=== PATIENT | female | born 1980 | race Caucasian/White ===

== ENCOUNTER 2017-05-01 12:46 | Outpatient (CLI) | payer OTHER | END 2017-05-01 12:47 | disposition home or self-care (01) | LOC: DTY/OP 12:46 | PROVIDERS: ATTEND Surgery | DX: E66.01 Morbid (severe) obesity due to excess calories (principal) | CPT/HCPCS: 97802 ==

== ENCOUNTER 2017-09-05 15:00 | Inpatient (IN) | payer BC ==
[2017-10-15 16:52] VITALS: BMI 35.4
--- NOTE | 2017-10-20 07:05 | HP ---
CHIEF COMPLAINT: Morbid obesity. HISTORY: The patient is a 37-year-old female who has been overweight for many years and attempted [facility] weight loss programs without success. She is here for sleeve gastrectomy. PAST MEDICAL HISTORY: Significant for hypothyroidism, glucose intolerance, hyperlipidemia. PAST SURGICAL HISTORY: Include a breast reduction in 2008. MEDICATIONS: She is on estradiol, Lipitor, Synthroid, metoprolol, citalopram. ALLERGIES: BACTRIM and HYDROCODONE. FAMILY HISTORY: Both parents are alive in good health. SOCIAL HISTORY: She is . No tobacco, no alcohol. PHYSICAL EXAMINATION: GENERAL: Height 5 foot 2, weight 198, body mass index is 36.2. VITAL SIGNS: Blood pressure 116/76, pulse 76. She is a well-developed, well-nourished female in no apparent distress. HEENT: Good hair growth. No alopecia. Pupils equal, round, and reactive. Extraocular muscles inta ct. Pharynx clear. Good dentition. NECK: Supple, no thyroid masses, no carotid bruits. LUNGS: Clear. HEART: Regular rate and rhythm. BREASTS: No palpable breast masses. No lymphadenopathy. ABDOMEN: Soft, nondistended, nontender, good bowel sounds. EXTREMITIES: Good pulses. No pedal edema. BACK: Nontender. ASSESSMENT: Morbid obesity with comorbidities. PLAN: Laparoscopic sleeve gastrectomy. CONSENT: I have discussed the planned procedure as well as risk of bleeding, infection, injury to sp asad, esophagus, loops of bowel, need to open, leakage from staple line. She understands and gives i nformed consent.
[2017-10-20] MEDS ORDERED: CEFAZOLIN/Water 2 GM/20 ML SYRINGE ONE (08:06)
[2017-10-20] MEDS ORDERED: Heparin 5,000 UNITS/ML VIAL ONE (08:06)
[2017-10-20] MEDS ORDERED: Bupivacaine/Epinephrine 0.25% 30 ML VIAL ONE (08:32)
[2017-10-20] MEDS ORDERED: Midazolam HCl 2 mg/2 ml Vial ONE (08:38)
[2017-10-20] MEDS ORDERED: Fentanyl 100 MCG/2 ML VIAL ONE ×3 (09:06→11:28)
[2017-10-20] MEDS ORDERED: HYDROmorphone 0.5 MG/0.5 ML SYRINGE ONE (09:06)
[2017-10-20] MEDS ORDERED: Ondansetron HCl/PF 4 MG/2 ML Vial IVP PRN ×3 (09:57→10:19)
[2017-10-20] MEDS ORDERED: Promethazine HCl 25 MG/ML VIAL SLOW IVP PRN (09:57)
[2017-10-20] MEDS ORDERED: HYDROmorphone 2 MG/ML VIAL SLOW IVP PRN (09:57)
[2017-10-20] MEDS ORDERED: Morphine Sulfate 2 MG/ML SYRINGE SLOW IVP PRN (09:57)
[2017-10-20] MEDS ORDERED: Meperidine HCl/PF 25 MG/ML VIAL SLOW IVP PRN (09:57)
[2017-10-20] MEDS ORDERED: Promethazine HCl 25 MG/ML VIAL IM PRN ×4 (09:57→12:25)
[2017-10-20] MEDS ORDERED: hydrALAZINE 20 MG/ML VIAL SLOW IVP PRN ×2 (10:16→10:19)
[2017-10-20] MEDS ORDERED: Hydrocodone-Acetamin 15 ML UDCUP PO PRN ×3 (10:16→12:24)
[2017-10-20] MEDS ORDERED: Dextrose 50% Abboject 50 ML SYRINGE SLOW IVP PRN ×2 (10:16→10:19)
[2017-10-20] MEDS ORDERED: Dextrose 5% in Water 1,000 ML IV PRN ×2 (10:16→10:19)
[2017-10-20] MEDS ORDERED: diphenhydrAMINE 50 MG/ML VIAL IVP PRN ×2 (10:16→10:19)
[2017-10-20] MEDS ORDERED: D5 1/2 NS w/20 mEq KCL 1,000 ML ONE (10:44)
--- NOTE | 2017-10-20 10:52 | OP ---
PREOPERATIVE DIAGNOSIS: Morbid obesity. SURGEON: Shlomo De Santiago M.D. PROCEDURES PERFORMED: Laparoscopic sleeve gastrectomy, esophagogastroscopy. INDICATIONS: This is a 37-year-old female who has been overweight for many years and attempted [facility] weight loss programs without success. She is here for sleeve gastrectomy. FINDINGS: A 38-Micronesian bougie used. PROCEDURE IN DETAIL: After informed consent was obtained, the patient was taken to the operating [place] [facility] and given general endotracheal anesthesia. She was placed in the supine position. Abdomen was pre pped and draped in usual fashion. Local anesthesia infiltrated subcutaneously and deep. A 12 mm inc ision was performed approximately 8 inches below the xiphoid slightly to the left. Veress needle ins erted. Drop test performed. Pneumoperitoneum was created to a volume of 2 liters of carbon dioxide. Utilizing a bladeless 12 mm trocar and 0-degree laparoscope, direct visual entry into abdominal cav ity was performed. Pneumoperitoneum was created to a pressure of 15 mmHg and the patient placed in s teep reverse Trendelenburg position and Nathansen liver retractor inserted. Left lobe of liver retra cted superiorly. The pylorus identified. A 12 mm port placed on the right beneath it and two 12s pl aced left subcostal. The omentum was taken off the greater curvature 5 cm from the pylorus. Short g astrics divided with the LigaSure and the left crura defined with the LigaSure. A 38-Micronesian bougie i nserted and directed into the antrum. The linear 60 mm green load stapler used to divide the antrum to the bougie, gold load along the bougie, and a series of blues through the angle of His. Intraoper ative endoscopy was performed. The video endoscope inserted under direct vision and advanced into th e sleeve. The staple line inspected. There was no bleeding. Staple line then tested by inflating t he stomach with pressurized air under water. There is no air leak. Stomach decompressed. Scope rem francisca. The remnant stomach removed from the abdomen through the left lateral port site. The fascia c losed with 0 Vicryl suture and the GraNee needle. Trocars and retractors removed. Hemostasis assure d. Skin closed with interrupted 4-0 Rapide. Dermabond applied. The patient tolerated the procedure well and was transferred to recovery in good condition. Sponge and needle count verified correct x2 .
[2017-10-20] MEDS ORDERED: diphenhydrAMINE 25 MG CAP PO PRN (12:25)
[2017-10-20] MEDS ORDERED: Zolpidem Tartrate 5 MG TAB PO PRN (12:25)
[2017-10-20] MEDS ORDERED: diphenhydrAMINE 50 MG/ML VIAL IM/IV PRN (12:25)
[2017-10-20] MEDS ORDERED: Ketorolac Tromethamine 30 MG/ML VIAL IVP PRN (12:25)
[2017-10-20] MEDS ORDERED: fentaNYL Citrate/PF 2,000 MCG in Sodium Chloride 0.9% 60 ML IV PRN (12:25)
[2017-10-20] MEDS ORDERED: Naloxone HCl 0.4 mg/ml Vial IV PRN (12:25)
[2017-10-20] MEDS: 1/2 NS w/KCL 20 mEq 1,000 ML IV SCH ×2 (14:12→20:12)
[2017-10-20] MEDS: Ketorolac Tromethamine 30 MG/ML VIAL IVP SCH ×3 (14:12→23:01)
[2017-10-20] MEDS: Ondansetron HCl/PF 4 MG/2 ML Vial IVP PRN (14:35)
[2017-10-20] MEDS ORDERED: CEFAZOLIN/Water 2 GM/20 ML SYRINGE SLOW IVP SCH (16:00)
[2017-10-20] MEDS: CEFAZOLIN/Water 2 GM/20 ML SYRINGE SLOW IVP SCH (18:16)
[2017-10-21] MEDS: CEFAZOLIN/Water 2 GM/20 ML SYRINGE SLOW IVP SCH (01:48)
[2017-10-21] MEDS: 1/2 NS w/KCL 20 mEq 1,000 ML IV SCH ×2 (01:51→10:39)
[2017-10-21 05:36] LABS: #Lymphocytes 1.9 thou/uL (1.20-3.40); #Monocytes 0.5 thou/uL (0.11-0.59); #Neutrophils 5.7 thou/uL (1.40-6.50); %Basophils 0.4 % (0.0-1.0); %Eosinophils 0.2 % (0.0-10.0); %Lymphocytes 23.5 % (21.0-51.0); %Monocytes 6.1 % (0.0-10.0); %Neutrophils 69.8 % (42.0-75.0); Hemoglobin 10.4 g/dL (12.0-16.0); Mean Corpuscular HGB CONC 35.1 g/dL (32.0-36.0); Mean Corpuscular Hemoglobin 30.6 pg (27.0-31.0); Mean Corpuscular Volume 87.1 fL (78.0-98.0); Mean Platelet Volume 6.7 fL (7.4-10.4); Platelet Count 219 thou/uL (130-400); RBC Distribution Width 11.4 % (11.5-14.5); White Blood Cell (WBC) Count 8.2 thou/uL (4.8-10.8)
[2017-10-21] MEDS: Ketorolac Tromethamine 30 MG/ML VIAL IVP SCH ×2 (05:39→11:53)
[2017-10-21 05:58] LABS: Anion Gap 13 mmol/L (10-20); BUN (Urea Nitrogen) 9 mg/dL (7.0-18.7); Calc. Creatinine Clearance 143 mL/min (70-130); Calcium 8.5 mg/dL (7.8-10.44); Carbon Dioxide 19 mmol/L (22-29); Chloride 108 mmol/L (98-107); Estimated GFR-MDRD 88; Glucose 88 mg/dL (70-105); Potassium 4.1 mmol/L (3.5-5.1); Sodium 136 mmol/L (136-145)
[2017-10-21] MEDS ORDERED: Pantoprazole 40 MG VIAL IVP SCH ×2 (09:00)
[2017-10-21] MEDS ORDERED: Enoxaparin Sodium 40 MG/0.4 ML SYRINGE SC SCH (09:00)
--- NOTE | 2017-10-21 09:39 | RAD ---
15 ML GASTROGRAFIN UPPER GI: Date: 10/21/17 HISTORY: Evaluate for leak or obstruction following gastric sleeve procedure. FINDINGS: The patient ingested 15 mL of Gastrografin. The contrast media traverses the gastroesophageal junctio n and enters the postoperative stomach without delay. No leak or obstruction is seen. The contrast me pastora extends into the proximal duodenum. IMPRESSION: No evidence for leak or obstruction following gastric sleeve procedure. POS: BRIGHT
[2017-10-21 11:17] VITALS: BP 127/73; TEMP 98.4
[2017-10-21] MEDS: Ondansetron HCl/PF 4 MG/2 ML Vial IVP PRN (11:31)
[2017-10-21] MEDS ORDERED: GASTROGRAFIN 30 ML BOT ONE (13:17)
--- NOTE | 2017-10-21 14:53 | DIS ---
DISCHARGE DIAGNOSIS: Morbid obesity. SURGEON: Dr. De Santiago. PROCEDURES DURING ADMISSION: Laparoscopic sleeve gastrectomy, intraoperative esophagogastroscopy, an d postoperative Gastrografin swallow. HOSPITAL COURSE: The patient was admitted and taken to the operating room where she underwent sleeve gastrectomy. Postoperatively, she is doing well. Her swallow was fine. She was started on liquid. She is tolerating them well. Discharged home in good condition on hydrocodone which she says only causes nausea and Zofran. She will follow up with me in 2 weeks.
== END 2017-10-21 14:55 | disposition home or self-care (01) | DRG 621 ==
LOC: CANPREIN → SURG A 10-20 07:25 → SURG B 10-20 13:46
PROVIDERS: ADMIT Surgery; ATTEND Surgery
PROC: 0DB64Z3 Excision of Stomach, Percutaneous Endoscopic Approach, Vertical (ICD-10-PCS; principal; 2017-10-20)
PROC: 0DJ08ZZ Inspection of Upper Intestinal Tract, Via Natural or Artificial Opening Endoscopic (ICD-10-PCS; 2017-10-20)
DX: E66.01 Morbid (severe) obesity due to excess calories (principal); Z68.35 Body mass index [BMI] 35.0-35.9, adult; E03.9 Hypothyroidism, unspecified; E87.5 Hyperkalemia; Z79.899 Other long term (current) drug therapy; Z88.2 Allergy status to sulfonamides; Z88.5 Allergy status to narcotic agent
CPT/HCPCS: 36415; 74241; 80048; 85025; 88307; 88312; 94760; C9113; J0131; J1170; J1644; J1650; J1885; J2250; J2405; J2550; J3010; J7050

== ENCOUNTER 2017-10-15 16:04 | Outpatient (CLI) | payer BC ==
--- NOTE | 2017-10-15 16:29 | RAD ---
CHEST TWO VIEW 10/15/17 HISTORY: Preop. COMPARISON: None. FINDINGS: The lungs are clear. No pneumothorax or effusion. The cardiac silhouette and mediastinal contours are within normal limits. IMPRESSION: No acute intrathoracic abnormality. POS: C
[2017-10-15 16:44] LABS: BHCG - Serum Negative (NEGATIVE); Pregs Control Background? CLEAR/WHITE (CLR/WHITE); Pregs Control Bar Appear? YES (CONTROL BAR)
[2017-10-15 16:47] LABS: #Basophils 0.1 thou/uL (0.0-0.2); #Eosinphils 0.1 thou/uL (0.0-0.7); #Lymphocytes 3.1 thou/uL (1.20-3.40); #Monocytes 0.5 thou/uL (0.11-0.59); #Neutrophils 4.8 thou/uL (1.40-6.50); %Basophils 0.7 % (0.0-1.0); %Eosinophils 1.1 % (0.0-10.0); %Lymphocytes 36.4 % (21.0-51.0); %Monocytes 5.5 % (0.0-10.0); %Neutrophils 56.2 % (42.0-75.0); Hemoglobin 12.8 g/dL (12.0-16.0); Hemoglobin A1c 5.1 % (4.0-6.0); Mean Corpuscular HGB CONC 36.6 g/dL (32.0-36.0); Mean Corpuscular Hemoglobin 31.2 pg (27.0-31.0); Mean Corpuscular Volume 85.4 fL (78.0-98.0); Mean Platelet Volume 6.7 fL (7.4-10.4); Platelet Count 326 thou/uL (130-400); RBC Distribution Width 11.6 % (11.5-14.5); Red Blood Cell (RBC) Count 4.09 mill/uL (4.20-5.40); White Blood Cell (WBC) Count 8.5 thou/uL (4.8-10.8)
[2017-10-15 16:58] LABS: ALT (SGPT) 41 U/L (8-55); AST (SGOT) 68 U/L (5-34); Alkaline Phosphatase 87 U/L (40-150); Anion Gap 12 mmol/L (10-20); BUN (Urea Nitrogen) 19 mg/dL (7.0-18.7); Bilirubin, Direct 0.4 mg/dL (0.1-0.3); Bilirubin, Total 0.8 mg/dL (0.2-1.2); Calc. Creatinine Clearance 0 mL/min (70-130); Carbon Dioxide 25 mmol/L (22-29); Chloride 103 mmol/L (98-107); Estimated GFR-MDRD 84; Globulin 3.1 g/dL (2.4-3.5); Glucose 119 mg/dL (70-105); Potassium 4.1 mmol/L (3.5-5.1); Protein, Total 7.1 g/dL (6.0-8.3); Sodium 136 mmol/L (136-145)
== END 2017-10-15 16:05 | disposition home or self-care (01) ==
LOC: LABBT 16:04
PROVIDERS: ATTEND Surgery
DX: Z01.818 Encounter for other preprocedural examination (principal); E66.01 Morbid (severe) obesity due to excess calories
CPT/HCPCS: 71046; 80053; 80076; 83036; 84703; 85025

== ENCOUNTER 2017-10-23 15:47 | Emergency (ER) | payer BC ==
[~2017-10-23 15:47] MED LIST: ISOVUE-370 76%-LOCM 1 ML ONE
[2017-10-23] MEDS ORDERED: Ondansetron ODT 4 MG TAB ONE (16:16)
[2017-10-23] MEDS ORDERED: Dicyclomine 20 MG TAB ONE (16:16)
[2017-10-23 17:07] LABS: #Eosinphils 0.1 thou/uL (0.0-0.7); #Lymphocytes 1.7 thou/uL (1.20-3.40); #Monocytes 0.4 thou/uL (0.11-0.59); #Neutrophils 4.4 thou/uL (1.40-6.50); %Basophils 0.3 % (0.0-1.0); %Eosinophils 1.3 % (0.0-10.0); %Lymphocytes 25.7 % (21.0-51.0); %Neutrophils 66.7 % (42.0-75.0); Hemoglobin 11.5 g/dL (12.0-16.0); Mean Corpuscular HGB CONC 35.4 g/dL (32.0-36.0); Mean Corpuscular Hemoglobin 30.9 pg (27.0-31.0); Mean Corpuscular Volume 87.4 fL (78.0-98.0); Mean Platelet Volume 6.3 fL (7.4-10.4); Platelet Count 248 thou/uL (130-400); RBC Distribution Width 11.6 % (11.5-14.5); White Blood Cell (WBC) Count 6.6 thou/uL (4.8-10.8)
[2017-10-23 17:31] LABS: ALT (SGPT) 29 U/L (8-55); AST (SGOT) 67 U/L (5-34); Albumin 3.3 g/dL (3.5-5.0); Alkaline Phosphatase 99 U/L (40-150); Anion Gap 14 mmol/L (10-20); BUN (Urea Nitrogen) 12 mg/dL (7.0-18.7); Bilirubin, Total 1.1 mg/dL (0.2-1.2); Calc. Creatinine Clearance 0 mL/min (70-130); Calcium 8.9 mg/dL (7.8-10.44); Carbon Dioxide 20 mmol/L (22-29); Chloride 107 mmol/L (98-107); Estimated GFR-MDRD Greater than 90; Globulin 2.8 g/dL (2.4-3.5); Glucose 82 mg/dL (70-105); Potassium 4.1 mmol/L (3.5-5.1); Protein, Total 6.1 g/dL (6.0-8.3); Sodium 137 mmol/L (136-145)
[2017-10-23 17:36] LABS: BHCG - Serum Negative (NEGATIVE); Pregs Control Background? CLEAR/WHITE (CLR/WHITE); Pregs Control Bar Appear? YES (CONTROL BAR)
--- NOTE | 2017-10-23 20:06 | CT ---
CT ABDOMEN WITH CONTRAST CT PELVIS WITH CONTRAST: DATE: 10/23/17 TIME: 5:48 p.m. HISTORY: 37-year-old female with generalized abdominal pain, diarrhea and nausea. Status post gastric sleeve s urgery three days ago. COMPARISON: None. TECHNIQUE: IV injection of iodinated contrast media: 100 mL Isovue 370 Oral contrast media: Not administered. FINDINGS: There are a couple of tiny pockets of gas in the subcutaneous fat anterior to the left and right ante rior abdominal wall. There is a small amount of oral contrast material scattered in different regions of the colon, probably representing residual from the upper GI study of 10/21/17. There are several t iny pockets of free intraperitoneal air in the nondependent, anterior aspect of the upper peritoneal cavity, from recent surgery. Gastric channel is narrowed, and contains suture lines and a few surgica l clips. Plate-like streaky densities at the posterior bases of bilateral lower lobes are consistent with subsegmental atelectasis. There is a tiny left pleural effusion. The abdominal aorta, left kidne y, adrenals, pancreas, liver, and spleen, are normal. No signs of acute cholecystitis. There is a 5 m m calculus at a right renal lower pole calyx. There is no other abnormality of the right kidney. The appendix is normal. No signs of colonic diverticulitis. A small pocket of fluid in the cul-de-sac has higher density than typical serous fluid (42 HU). This is consistent with a small amount of intraper itoneal blood in a dependent location, presumably related to the recent surgery. Urinary bladder is d ecompressed. No small bowel dilation. IMPRESSION: 1. Status post vertical sleeve gastrectomy. 2. Recent postsurgical changes, including small amount of pneumoperitoneum, and a small amount o f free blood in the cul-de-sac in the pelvic cavity. 3. Nephrolithiasis consisting of a solitary 5 mm right renal calculus. 4. No other acute findings. MARIYA Keys POS: BRIGHT
== END 2017-10-23 18:45 | disposition home or self-care (01) ==
LOC: ERS 15:47
DX: G89.18 Other acute postprocedural pain (principal); E86.0 Dehydration; E78.5 Hyperlipidemia, unspecified; I10 Essential (primary) hypertension
CPT/HCPCS: 36415; 74177; 80053; 84703; 85025; 96360; 96361; Q0162

== ENCOUNTER → 2017-10-28 | Day surgery (SDC) | payer BC ==
[~2017-10-28] MED LIST changes: -ISOVUE-370 76%-LOCM 1 ML ONE; +Multivit, Adult Inj 10 ML VIAL ONE
== END ==
LOC: SCSER 13:02
PROVIDERS: ATTEND Surgery
DX: E86.0 Dehydration (principal); Z88.1 Allergy status to other antibiotic agents; Z98.84 Bariatric surgery status

== ENCOUNTER → 2017-11-12 | Day surgery (SDC) | payer BC ==
[~2017-11-12] MED LIST changes: +Ondansetron HCl/PF 4 MG/2 ML Vial ONE
== END ==
LOC: SCSER/OP 13:44
PROVIDERS: ATTEND Surgery
DX: E86.0 Dehydration (principal); Z88.1 Allergy status to other antibiotic agents
CPT/HCPCS: J2405